=== PATIENT | male | born 1980 | race Caucasian/White ===

== ENCOUNTER 2017-08-09 16:28 | Emergency (ER) | payer BC ==
--- NOTE | 2017-08-09 18:12 | EDM.PDOC ---
ED HPI GENERAL MEDICAL PROBLEM - General Chief Complaint: Lower Extremity Injury/Pain Stated Complaint: PAIN LT LEG Time Seen by Provider: 08/09/17 18:02 Source of Information: Reports: Patient History Limitations: Reports: No Limitations - History of Present Illness INITIAL COMMENTS - FREE TEXT/NARRATIVE: HISTORY AND PHYSICAL: History of present illness: Patient is a 36-year-old male who presents to the emergency room today with complaints of left knee pain. States yesterday he fell and twisted his knee and landed on it. Since that time has had increased pain and difficulty walking on it. Has a history of 3 knee surgeries to the affected extremity. He has had a total knee replacement and a artificial ACL. Patient reports he did call Dr. Jansen and try to get in to see her at this time. Dr. Jansen is out until 08/15/2017 but spoke with her nurse on the phone, she recommended that he come to the emergency room for evaluation. Review of systems: As per history of present illness and below otherwise all systems reviewed and negative. Past medical history: As per history of present illness and as reviewed below otherwise noncontributory. Surgical history: As per history of present illness and as reviewed below otherwise noncontributory. Social history: No reported history of drug or alcohol abuse. Family history: As per history of present illness and as reviewed below otherwise noncontributory. Physical exam: HEENT: Atraumatic, normocephalic, pupils reactive, negative for conjunctival pallor or scleral icterus, mucous membranes moist, throat clear, neck supple, nontender, trachea midline. Lungs: Clear to auscultation, breath sounds equal bilaterally, chest nontender. Heart: S1S2, regular, negative for clicks, rubs, or JVD. Abdomen: Soft, nondistended, nontender. Negative for masses or hepatosplenomegaly. Negative for costovertebral tenderness. Pelvis: Stable nontender. Genitourinary: Deferred. Rectal: Deferred. Extremities/Skin: Left knee was palpated with no obvious deformities. Slight tenderness with palpation over the lateral and medial sides. No instability noted but did cause mild discomfort while performing these tests. Skin is intact , warm, dry. No edema noted. Strong pedal pulses. Positive CMS. No foot drop noted. Negative for cords or calf pain. Neurovascular unremarkable. Neuro: Awake, alert, oriented. Cranial nerves II through XII unremarkable. Cerebellum unremarkable. Motor and sensory unremarkable throughout. Exam nonfocal. I did witness the patient ambulate in and was able to lightly bear weight. I did discuss with the patient that since he has multiple knee injuries/surgeries in the past that also involved tendon and ligament involvement he would likely need close follow-up with his orthopedic surgeon, Dr. Jansen. Even if today's x- ray is negative he may need an MRI for further evaluation. Patient voices understanding and is agreeable to plan of care. Viewed the x-ray results with patient. As we discussed previously it would like him to follow-up with orthopedist. Will provide him with crutches and a knee immobilizer. Limited amount of [place] has been prescribed. He may take ibuprofen for intermittent breakthrough pain. Please be nonweightbearing. Patient voices understanding and is agreeable to plan of care. Denies any further questions at this time. Diagnostics: Knee x-ray Therapeutics: Crutches, knee immobilizer Impression: Injury Plan: 1. The x-ray does not show any fractures. Due to your extensive history of knee injuries/surgeries I do want to do follow-up with an orthopedist in the next 1- 2 days. 2. Use your crutches and the knee immobilizer to be nonweightbearing. He may ice , elevate, and rest the extremity as often as possible. 3. La Vernia 02/24/25 has been given to as a prescription for pain management. He may take 1 tab every 4-6 hours as needed. You may take ibuprofen as needed for breakthrough pain. 4. Turn to the ED as needed and as discussed Definitive disposition and diagnosis as appropriate pending reevaluation and review of above. Onset Date: 08/08/17 Location: Reports: Lower Extremity, Left - Related Data Allergies Allergy/AdvReac Type Severity Reaction Status Date / Time No Known Allergies Allergy Verified 09/09/14 21:51 Past Medical History - Past Health History Medical/Surgical History: Denies Medical/Surgical History Social & Family History - Tobacco Use Smoking Status *Q: Current Some Day Smoker Years of Tobacco use: 4 - Alcohol Use Days Per Week of Alcohol Use: 1 Number of Drinks Per Day: 4 Total Drinks Per Week: 4 - Recreational Drug Use Recreational Drug Use: No Drug Use in Last 12 Months: No Review of Systems - Review of Systems Review Of Systems: ROS reveals no pertinent complaints other than HPI. ED EXAM, GENERAL - Physical Exam Exam: See Below (See dictation) Course - Orders/Labs/Meds Orders: Active Orders 24 hr Category Date Time Status Knee 3V Lt [CR] Stat Exams 08/09/17 16:36 Taken DME for Discharge [COMM] Stat Oth 08/09/17 18:25 Ordered Departure - Departure Time of Disposition: 18:34 Disposition: Home, Self-Care 01 Clinical Impression: Knee injury Qualifiers: Encounter type: initial encounter Laterality: left Qualified Code(s): S89.92XA - Unspecified injury of left lower leg, initial encounter - Discharge Information Referrals: PCP,None [Primary Care Provider] - Forms: ED Department Discharge Additional Instructions: My general discharge The following information is given to patients seen in the emergency department who are being discharged to home. This information is to outline your options for follow-up care. We provide all patients seen in our emergency department with a follow-up referral. The need for follow-up, as well as the timing and circumstances, are variable depending upon the specifics of your emergency department visit. If you don't have a primary care physician on staff, we will provide you with a referral. We always advise you to contact your personal physician following an emergency department visit to inform them of the circumstance of the visit and for follow-up with them and/or the need for any referrals to a consulting specialist. The emergency department will also refer you to a specialist when appropriate. This referral assures that you have the opportunity for follow-up care with a specialist. All of these measure are taken in an effort to provide you with optimal care, which includes your follow-up. Under all circumstances we always encourage you to contact your private physician who remains a resource for coordinating your care. When calling for follow-up care, please make the office aware that this follow-up is from your recent emergency room visit. If for any reason you are refused follow-up, please contact the [facility] Emergency Department at and asked to speak to the emergency department charge nurse. [facility] Specialty Care - [facility] Professional [address], [address] [place] [address] 1. The x-ray does not show any fractures. Due to your extensive history of knee injuries/surgeries I do want to do follow-up with an orthopedist in the next 1- 2 days. 2. Use your crutches and the knee immobilizer to be nonweightbearing. He may ice , elevate, and rest the extremity as often as possible. 3. La Vernia 02/24/25 has been given to as a prescription for pain management. He may take 1 tab every 4-6 hours as needed. You may take ibuprofen as needed for breakthrough pain. 4. Turn to the ED as needed and as discussed - My Orders Last 24 Hours: My Active Orders 08/09/17 18:25 DME for Discharge [COMM] Stat - Assessment/Plan Last 24 Hours: My Active Orders 08/09/17 18:25 DME for Discharge [COMM] Stat
[2017-08-09 19:22] VITALS: BP 115/60
--- NOTE | 2017-08-10 10:27 | CR ---
EXAM DATE: 08/09/17 PATIENT'S AGE: 36 Patient: AMISHA SANTANA Facility: [place], [place] Site . Site : 1980 Study: XRay Knee [id number]/[id number] 5:00:47 PM Ordering Physician: Doctor Morris Final Report: Indication: Sports injury yesterday history of prior injury and surgery Technique: Three views left knee Comparison: September 09, 2014 Findings: Bones: Alignment is normal. No fractures or bone lesions. Unchanged postsurgical changes in the proximal tibia Joint spaces: Stable, mild to moderate degenerative changes in the medial and lateral compartments of the knee. Soft tissues: There may be a very small suprapatellar effusion. Impression: There may be a very small suprapatellar effusion. No acute fracture. Stable degenerative changes in the medial and lateral compartments. Dictated by Renetta Escamilla MD @ Aug 09 2017 5:25PM (Electronic Signature) Report Signed by Proxy. MIYA
== END 2017-08-09 18:52 | disposition home or self-care (01) ==
LOC: MW.ED 16:28
DX: S89.92XA Unspecified injury of left lower leg, initial encounter (principal); F17.200 Nicotine dependence, unspecified, uncomplicated; X50.1XXA Overexertion from prolonged static or awkward postures, initial encounter
CPT/HCPCS: 73562-26-LT; 73562-LT; 99283

== ENCOUNTER 2017-09-27 06:34 | Day surgery (SDC) | payer BC ==
[~2017-09-27 06:34] MED LIST: Lactated Ringers 1,000 ML IV SCH
[2017-09-27] MEDS ORDERED: Ondansetron 4 MG/2 ML SDV ONE (07:17)
[2017-09-27] MEDS ORDERED: Midazolam 1 MG/ML 2 ML SDV ONE (07:17)
[2017-09-27] MEDS ORDERED: Propofol 200 MG/20 ML SDV ONE ×2 (07:17→07:23)
[2017-09-27] MEDS ORDERED: fentaNYL 100 MCG/2 ML SDV ONE (07:17)
[2017-09-27] MEDS ORDERED: Dexamethasone 4 MG/ML 5 ML MDV ONE (07:18)
[2017-09-27] MEDS ORDERED: Ketorolac 30 MG/ML SDV ONE (07:18)
[2017-09-27] MEDS ORDERED: Lidocaine 1% 20 ML MDV ONE (07:32)
--- NOTE | 2017-09-27 07:32 | PCM.PREANE ---
Preanesthetic Assessment - Procedure Proposed Procedure: Left knee scope with menisectomy - Anesthesia/Transfusion/Family Hx Anesthesia History: Prior Anesthesia Without Reaction Other Type of Anesthesia Reaction Comment: DENIES ANY PROBLEMS WITH ANESTHESIA Transfusion History: No Prior Transfusion(s) Intubation History: Unknown - Review of Systems General: No Symptoms, Other (active - played hockey last evening) Pulmonary: No Symptoms Cardiovascular: No Symptoms Gastrointestinal: No Symptoms Neurological: Gait Disturbance (due to pain in left knee) Other: Reports: None - Physical Assessment NPO Status Date: 09/26/17 NPO Status Time: 23:00 O2 Sat by Pulse Oximetry: 96 Respiratory Rate: 16 Vital Signs: Last Vital Signs Temp 98.4 F 09/27/17 07:09 Pulse 64 09/27/17 07:09 Resp 16 09/27/17 07:09 BP 112/65 09/27/17 07:09 Pulse Ox 96 09/27/17 07:09 Height: 5 ft 8 in Weight: 210 lb ASA Class: 2 Airway Class: Mallampati = 2 Dentition: Reports: Normal Dentition Thyro-Mental Finger Breadths: 3 Mouth Opening Finger Breadths: 3 ROM/Head Extension: Full Lungs: Clear to Auscultation, Normal Respiratory Effort Cardiovascular: Regular Rate, Regular Rhythm, No Murmurs - Allergies Allergies/Adverse Reactions: Allergies Allergy/AdvReac Type Severity Reaction Status Date / Time No Known Allergies Allergy Verified 09/09/14 21:51 - Blood Blood Available: No Product(s) Available: None - Acknowledgements Anesthesia Type Planned: General Anesthesia (LMA) Pt an Appropriate Candidate for the Planned Anesthesia: Yes Alternatives and Risks of Anesthesia Discussed w Pt/Guardian: Yes Pt/Guardian Understands and Agrees with Anesthesia Plan: Yes Additional Comments: consent signed, questions answered. PreAnesthesia Questionnaire - Past Health History Medical/Surgical History: Denies Medical/Surgical History Gastrointestinal History: Reports: Other (See Below) Other Gastrointestinal History: occasional heartburn Musculoskeletal History: Reports: Arthritis Neurological History: Reports: Concussion Endocrine/Metabolic History: Reports: Obesity/BMI 30+ - Past Surgical History Head Surgeries/Procedures: Reports: None Musculoskeletal Surgical History: Reports: Arthroscopic Knee Other Musculoskeletal Surgeries/Procedures:: previous left knee scope x3 - SUBSTANCE USE Smoking Status *Q: Current Every Day Smoker Tobacco Use Within Last Twelve Months: Cigarettes Days Per Week of Alcohol Use: 1 Number of Drinks Per Day: 4 Total Drinks Per Week: 4 Recreational Drug Use History: No - HOME MEDS Home Medications: Home Meds Acetaminophen/HYDROcodone [[place] 325-5 MG] 1 tab PO ASDIRECTED PRN 09/22/17 [ History] - CURRENT (IN HOUSE) MEDS Current Meds: Current Medications Hydrocodone Bitart/Acetaminophen ([place] 325-5 Mg) 1 - 2 tab PO Q4H PRN PRN Reason: Pain Cefazolin Sodium/Dextrose 2 gm (/ Premix) 50 mls @ 100 mls/hr IV ONCALL LEROY Lactated Ringer's (Ringers, Lactated) 1,000 mls @ 100 mls/hr IV ASDIRECTED LEROY Last Admin: 09/27/17 07:00 Dose: 100 mls/hr Discontinued Medications Dexamethasone (Dexamethasone) Confirm Administered Dose 20 mg .ROUTE .STK-MED ONE Stop: 09/27/17 07:19 Fentanyl (Sublimaze) Confirm Administered Dose 100 mcg .ROUTE .STK-MED ONE Stop: 09/27/17 07:18 Ketorolac Tromethamine (Toradol) Confirm Administered Dose 30 mg .ROUTE .STK- MED ONE Stop: 09/27/17 07:19 Midazolam HCl (Versed 1 Mg/Ml) Confirm Administered Dose 2 mg .ROUTE .STK-MED ONE Stop: 09/27/17 07:18 Ondansetron HCl (Zofran) Confirm Administered Dose 4 mg .ROUTE .STK-MED ONE Stop: 09/27/17 07:18 Propofol (Diprivan 20 Ml) Confirm Administered Dose 200 mg .ROUTE .STK-MED ONE Stop: 09/27/17 07:18 Propofol (Diprivan 20 Ml) Confirm Administered Dose 200 mg .ROUTE .STK-MED ONE Stop: 09/27/17 07:24
[2017-09-27] MEDS ORDERED: Acetaminophen/HYDROcodone 325-5 MG Tab PO PRN (08:00)
[2017-09-27] MEDS ORDERED: ceFAZolin 2 GM in Premix Bag 1 BAG IV SCH (08:00)
[2017-09-27] MEDS ORDERED: Sodium Chloride 0.9% 20 ML ONE (08:16)
[2017-09-27] MEDS ORDERED: ceFAZolin 1 GM Vial ONE (08:16)
--- NOTE | 2017-09-27 08:58 | PCM.OPNOTE ---
- General Post-Op/Procedure Note Date of Surgery/Procedure: 09/27/17 Operative Procedure(s): L knee arthroscopy with PMM/PLM Post-Op Diagnosis: DJD left knee, ACL tear, med/lat meniscus tear Anesthesia Technique: General LMA Primary Surgeon: Guerita Jansen Press Department Manager: Staci Carrera in mLs: 5 Condition: Good Free Text/Narrative:: tt=16 min #[id number]
--- NOTE | 2017-09-27 10:54 | OR ---
SURGEON: Guerita Jansen MD DATE OF PROCEDURE: 09/27/2017 PREOPERATIVE DIAGNOSES: 1. Degenerative joint disease, left knee. 2. Left knee anterior cruciate ligament tear. 3. Left knee medial and lateral meniscus tear. POSTOPERATIVE DIAGNOSES: 1. Degenerative joint disease, left knee. 2. Left knee anterior cruciate ligament tear. 3. Left knee medial and lateral meniscus tear. PROCEDURE: Left knee arthroscopy with partial medial and lateral meniscectomy. BLOCK MACHINE OPERATOR: Staci Carrera PA-C. ANESTHESIA: General. ESTIMATED BLOOD LOSS: 5 mL. TOURNIQUET TIME: 16 minutes. COMPLICATIONS: None. DVT PROPHYLAXIS: None indicated. IMPLANTS USED: None. BRIEF HISTORY: Jaret is a 37-year-old male, who has had complaint of progressive left knee pain. He has previously undergone a left knee ACL reconstruction in 2006. We did try conservative treatment. Due to his lack of response to conservative treatment, I did recommend surgical intervention. The risks and goals of procedure were discussed with the patient and were documented preoperatively. He agreed to proceed. DESCRIPTION OF PROCEDURE: The patient was properly identified and brought to the operating room. He was transferred from the OR cart and placed on the operating room table in supine position. General anesthesia was administered. After adequate anesthesia was obtained, a well-padded tourniquet was applied to the left lower extremity. The left lower extremity was then prepped in standard fashion using ChloraPrep solution. It was then sterilely draped. A time-out was performed to ensure correct site and procedure. Preoperative antibiotics were given. The surgical site had been marked preoperatively. An Esmarch was used to exsanguinate the left lower extremity and the tourniquet was inflated to 250 mmHg. A lateral portal arthrotomy was established. Blunt trocar and cannula were introduced into the suprapatellar pouch. Camera, inflow, and outflow were assembled. No synovitis was noted. The patellofemoral joint was then visualized. 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 The central portion of the trochlea showed grade 4 chondromalacia. The patella tracked centrally. I then extended down the lateral and medial gutter. No loose bodies were identified. I then entered the medial compartment. The medial portal arthrotomy was established. A blunt probe was inserted. The meniscus was probed. He had evidence of prior partial meniscectomy as there was only a thin rim of meniscus left along the posterior aspect. Small radial degenerative tearing was noted and this was resected using a shaver. The joint surfaces showed diffuse grade 3 chondromalacia. I then entered the notch. The PCL was visualized. Only a small remnant of the ACL remained which was scarred to the PCL. I then entered the lateral compartment. Again, grade 3 to grade 4 chondromalacia was noted along the lateral tibial plateau. There was an area along the medial aspect of the lateral tibial plateau that was completely devoid of the chondral cartilage. The lateral femoral condyle showed grade 2 chondromalacia. The meniscus was probed. He was found to have degenerative fraying which was resected with a combination of biters and shaver. No instability of the meniscus was noted. I then re-entered the patellofemoral joint. A chondroplasty of the patella was performed to remove the loose fragments of cartilage. A chondroplasty of the trochlear groove was also performed. Instruments were then removed from the knee. The portal sites were closed with 3-0 nylon. Lidocaine 1% was injected along the portal tracts. Xeroform gauze was placed over the wound and a bulky dressing was applied. The tourniquet was then deflated. He was awakened from his anesthetic and transferred back to the operating room cart. He was brought to recovery room in stable condition. All needle and sponge counts were correct. GAGANDEEP / KEYA /[id number] MIYA
[2017-09-27 11:16] VITALS: BP 109/58
--- NOTE | 2017-09-27 12:05 | PCM.POSTAN ---
POST ANESTHESIA ASSESSMENT - MENTAL STATUS Mental Status: Alert, Oriented - RESPIRATORY Respiratory Status: Respiratory Rate WNL, Airway Patent, O2 Saturation Stable - CARDIOVASCULAR CV Status: Pulse Rate WNL, Blood Pressure Stable - GASTROINTESTINAL GI Status: No Symptoms - POST OP HYDRATION Hydration Status: Adequate & Stable
--- NOTE | 2017-09-27 12:06 | PCM48HPAN ---
Post Anesthesia Note - EVALUATION WITHIN 48HRS OF ANESTHETIC Vital Signs in Normal Range: Yes Patient Participated in Evaluation: Yes Respiratory Function Stable: Yes Airway Patent: Yes Cardiovascular Function Stable: Yes Hydration Status Stable: Yes Pain Control Satisfactory: Yes Nausea and Vomiting Control Satisfactory: Yes Mental Status Recovered: Yes - COMMENTS/OBSERVATIONS Free Text/Narrative:: doing well without complaint at discharge
== END 2017-09-27 11:16 | disposition home or self-care (01) ==
LOC: MW.SDS 06:34
PROVIDERS: ATTEND Orthopaedic Surgery
DX: S83.242A Other tear of medial meniscus, current injury, left knee, initial encounter (principal); S83.282A Other tear of lateral meniscus, current injury, left knee, initial encounter; S83.512A Sprain of anterior cruciate ligament of left knee, initial encounter; M17.12 Unilateral primary osteoarthritis, left knee; M22.42 Chondromalacia patellae, left knee; F17.210 Nicotine dependence, cigarettes, uncomplicated; E66.9 Obesity, unspecified; Z68.31 Body mass index [BMI] 31.0-31.9, adult; Z98.890 Other specified postprocedural states
CPT/HCPCS: 29880; A9270; J0690; J1100; J1885; J2250; J2405; J3010; J7120; 01400; 88304; J2704

== ENCOUNTER 2017-12-19 12:02 | Emergency (ER) | payer BC ==
--- NOTE | 2017-12-19 13:22 | EDM.PDOC ---
ED HPI GENERAL MEDICAL PROBLEM - General Chief Complaint: ENT Problem Stated Complaint: SINUS INFECTION Time Seen by Provider: 12/19/17 13:14 - History of Present Illness INITIAL COMMENTS - FREE TEXT/NARRATIVE: HISTORY AND PHYSICAL: History of present illness: Patient 37-year-old male presents with concern of congestion sinus pain nasal discharge 1 no fever chills he is a smoker he denies influenza immunization denies chest pain shortness of breath cough or abdominal pain Review of systems: As per history of present illness and below otherwise all systems reviewed and negative. Past medical history: As per history of present illness and as reviewed below otherwise noncontributory. Surgical history: As per history of present illness and as reviewed below otherwise noncontributory. Social history: No reported history of drug or alcohol abuse. Family history: As per history of present illness and as reviewed below otherwise noncontributory. Physical exam: HEENT: Atraumatic, normocephalic, pupils reactive, negative for conjunctival pallor or scleral icterus, mucous membranes moist, throat clear, neck supple, nontender, trachea midline. Tenderness over his maxillary and frontal sinuses to percussion Lungs: Clear to auscultation, breath sounds equal bilaterally, chest nontender. Heart: S1S2, regular, negative for clicks, rubs, or JVD. Abdomen: Soft, nondistended, nontender. Negative for masses or hepatosplenomegaly. Negative for costovertebral tenderness. Pelvis: Stable nontender. Genitourinary: Deferred. Rectal: Deferred. Extremities: Atraumatic, negative for cords or calf pain. Neurovascular unremarkable. Neuro: Awake, alert, oriented. Cranial nerves II through XII unremarkable. Cerebellum unremarkable. Motor and sensory unremarkable throughout. Exam nonfocal. Diagnostics: Deferred Therapeutics: None Impression: #1 sinusitis Definitive disposition and diagnosis as appropriate pending reevaluation and review of above. - Related Data Allergies Allergy/AdvReac Type Severity Reaction Status Date / Time No Known Allergies Allergy Verified 09/09/14 21:51 Home Meds: Home Meds Acetaminophen/HYDROcodone [[place] 325-5 MG] 1 - 2 tab PO Q4H PRN #80 tablet 09/27 [Rx] Past Medical History - Past Health History Medical/Surgical History: Denies Medical/Surgical History Gastrointestinal History: Reports: Other (See Below) Other Gastrointestinal History: occasional heartburn Musculoskeletal History: Reports: Arthritis Neurological History: Reports: Concussion Endocrine/Metabolic History: Reports: Obesity/BMI 30+ - Past Surgical History Head Surgeries/Procedures: Reports: None Musculoskeletal Surgical History: Reports: Arthroscopic Knee Other Musculoskeletal Surgeries/Procedures:: previous left knee scope x3 Social & Family History - Family History Family Medical History: Noncontributory - Tobacco Use Smoking Status *Q: Current Every Day Smoker Years of Tobacco use: 10 Packs/Tins Daily: 0.5 - Caffeine Use Caffeine Use: Reports: Other Other Caffeine Use: unknown - Alcohol Use Days Per Week of Alcohol Use: 1 Number of Drinks Per Day: 4 Total Drinks Per Week: 4 - Recreational Drug Use Recreational Drug Use: No Drug Use in Last 12 Months: No Other Recreational Drug Type: unknown ED ROS GENERAL - Review of Systems Review Of Systems: ROS reveals no pertinent complaints other than HPI. ED EXAM, GENERAL - Physical Exam Exam: See Below (See dictation) Departure - Departure Time of Disposition: 13:21 Disposition: Home, Self-Care 01 Condition: Good Clinical Impression: Sinusitis - Discharge Information Referrals: PCP,None [Primary Care Provider] - Additional Instructions: The following information is given to patients seen in the emergency department who are being discharged to home. This information is to outline your options for follow-up care. We provide all patients seen in our emergency department with a follow-up referral. The need for follow-up, as well as the timing and circumstances, are variable depending upon the specifics of your emergency department visit. If you don't have a primary care physician on staff, we will provide you with a referral. We always advise you to contact your personal physician following an emergency department visit to inform them of the circumstance of the visit and for follow-up with them and/or the need for any referrals to a consulting specialist. The emergency department will also refer you to a specialist when appropriate. This referral assures that you have the opportunity for followup care with a specialist. All of these measure are taken in an effort to provide you with optimal care, which includes your followup. Under all circumstances we always encourage you to contact your private physician who remains a resource for coordinating your care. When calling for followup care, please make the office aware that this follow-up is from your recent emergency room visit. If for any reason you are refused follow-up, please contact the [facility] emergency department at and asked to speak to the emergency department charge nurse. Augmentin as prescribed decongestants as prescribed follow-up private medical doctor as needed as discussed and return as needed as discussed
[2017-12-19 13:25] VITALS: BP 119/79
== END 2017-12-19 13:47 | disposition home or self-care (01) ==
LOC: MW.ED 12:02
DX: J32.9 Chronic sinusitis, unspecified (principal); F17.210 Nicotine dependence, cigarettes, uncomplicated
CPT/HCPCS: 99283

== ENCOUNTER 2018-03-19 16:29 | Emergency (ER) | payer BC ==
[2018-03-19] MEDS ORDERED: Sodium Chloride 0.9% 10 ML Syringe FLUSH PRN (16:41)
[2018-03-19] MEDS ORDERED: Sodium Chloride 0.9% 2.5 ML Syringe FLUSH PRN (16:41)
[2018-03-19] MEDS ORDERED: Ondansetron 4 MG/2 ML SDV IVPUSH ONE (16:54)
[2018-03-19] MEDS ORDERED: Sodium Chloride 0.9% 1,000 ML IV ONE (16:54)
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
[2018-03-19] MEDS ORDERED: Morphine 2 MG/ML Syringe IVPUSH ONE (17:34)
[2018-03-19 18:12] VITALS: BP 115/74
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
== END 2018-03-19 18:50 ==
LOC: MW.ED 16:29
DX: S06.4X9A Epidural hemorrhage with loss of consciousness of unspecified duration, initial encounter (principal); F10.129 Alcohol abuse with intoxication, unspecified; Y04.8XXA Assault by other bodily force, initial encounter; E66.9 Obesity, unspecified; Z68.31 Body mass index [BMI] 31.0-31.9, adult; Y90.8 Blood alcohol level of 240 mg/100 ml or more
CPT/HCPCS: 36415; 70450; 70486; 71045; 72125; 80053; 85025; 85610; 96361; 96374; 96375; 99285; G0480; J2270; J2405; J7040

== ENCOUNTER 2020-07-04 18:17 | Emergency (ER) | payer BC ==
[2020-07-04] MEDS ORDERED: Ondansetron 4 MG Tab.DIS PO ONE (20:40)
[2020-07-04] MEDS ORDERED: Ketorolac 60 MG/2 ML SDV IM ONE (20:40)
[2020-07-04] MEDS ORDERED: HYDROmorphone 1 MG/ML Syringe IM ONE (20:40)
[2020-07-04] MEDS ORDERED: Ondansetron 4 MG Tab.DIS ONE (21:07)
--- NOTE | 2020-07-04 21:26 | CR ---
Chest and right ribs: Frontal view of the chest was obtained as well as 2 views of the right ribs. Comparison: Prior chest x-ray of 03/19/18. Heart size and mediastinum are normal. Lungs are clear. Deformity from old healed right clavicle fracture is noted. No discrete rib abnormality is appreciated. Impression: 1. Nothing acute is seen on frontal chest x-ray. 2. No discrete right-sided rib abnormality is appreciated. Diagnostic code #2 This report was dictated in MDT
--- NOTE | 2020-07-04 22:26 | EDM.PDOC ---
ED HPI GENERAL MEDICAL PROBLEM - General Chief Complaint: Back Pain or Injury Stated Complaint: FALL, MIDDLE BACK PAIN Time Seen by Provider: 07/04/20 20:21 - History of Present Illness INITIAL COMMENTS - FREE TEXT/NARRATIVE: HISTORY AND PHYSICAL: History of present illness: This is a 39-year-old gentleman who presents ER today complaining of right lateral rib pain after falling off his daughter's hover board earlier today. Patient reports no head trauma or loss of consciousness. Patient reports while he was riding the of a board he had a bump and he fell backwards hitting his right side of his ribs. Patient reports he is experiencing shortness of breath and severe pain in that region. Patient denies any hemoptysis. Patient has any fevers, shakes, chills, nausea, vomiting, diarrhea, dysuria, frequency, urgency, hematuria. Patient has any history of hypertension, diabetes, liver, lung, kidney problems. Patient has no known drug allergies. Review of systems: As per history of present illness and below otherwise all systems reviewed and negative. Past medical history: As per history of present illness and as reviewed below otherwise noncontributory. Surgical history: As per history of present illness and as reviewed below otherwise noncontributory. Social history: No reported history of drug or alcohol abuse. Family history: As per history of present illness and as reviewed below otherwise no ncontributory. Physical exam: Constitutional: Patient is oriented to person, place, and time. Appears well- developed and well-nourished. No distress. HEENT: Moist mucous membranes Head: Normocephalic and atraumatic Eyes: Right eye exhibits no discharge. Left eye exhibits no discharge. No scleral icterus Neck: Normal range of motion. No tracheal deviation present. Cardiovascular: Normal rate and regular rhythm. Pulmonary: Effort normal, no respiratory distress. Abdominal: No distention Musculoskeletal: Normal range of motion Neurologic: Alert and oriented to person, place and time. Skin: [place], warm and dry. Psychiatric: Normal mood and affect. Behavior is normal. Judgment and thought content normal. Nursing note and vital signs have been reviewed Patient's ER physical exam is significant for tenderness to palpation to his right lateral ribs. No crepitance. Lungs are clear without any wheezing rales or rhonchi. No deformity palpable. Patient has no point C-spine T-spine or L- spine tenderness. Patient has no C-spine T-spine or L-spine tenderness to palpation. Patient has no left upper or right upper quadrant tenderness to palpation. Patient has no crepitus to palpation to the anterior chest wall. Patient is neurologically intact. Patient does not present with any signs or or symptoms that would be consistent with acute intracranial, intra-abdominal, intrathoracic, or long bone injury. All long bones have been palpated and range of motion been performed and there is no evidence of any acute pathology. Diagnostics: Right ribs with chest x-ray reveals no evidence of acute fracture. Therapeutics: Toradol/Dilaudid/Zofran IM given to the patient Assessment and plan: 39-year-old gentleman who presents to the ER today complaining of right-sided rib pain after fall. Patient's x-rays revealed no evidence of fracture or pneumothorax. Patient has been given adequate analgesia in the ED and feels much improved. Patient be discharged home with ibuprofen and Ultram to assist with pain. Patient has been encouraged to take deep inspirations over the next few days. Patient was encouraged to return to the ED if he has any worsening shortness of breath or any new symptoms. Reassessment at the time of disposition demonstrates that the patient is in no acute distress. The patient has remained stable throughout the entire ED visit and is without objective evidence for acute process requiring urgent intervention or hospitalization. The patient is stable for discharge, counseling is provided as documented above, discussed symptomatic treatment and specific conditions for return. I have spoken with the patient/caregive and discussed todays findings, in addition to providing specific details for the plan of care. Questions are answered and there is agreement with the plan. Definitive disposition and diagnosis as appropriate pending reevaluation and review of above. tailbone, low back Pain Score (Numeric/FACES): 8 - Related Data Allergies Allergy/AdvReac Type Severity Reaction Status Date / Time No Known Allergies Allergy Verified 07/04/20 19:05 Home Meds: Home Meds Ibuprofen 600 mg PO Q6HR PRN #30 tablet 07/04/20 [Rx] traMADol [Ultram] 50 mg PO Q6H PRN #12 tab 07/04/20 [Rx] Past Medical History - Past Health History Medical/Surgical History: Denies Medical/Surgical History Gastrointestinal History: Reports: Other (See Below) Other Gastrointestinal History: occasional heartburn Musculoskeletal History: Reports: Arthritis Neurological History: Reports: Concussion Endocrine/Metabolic History: Reports: Obesity/BMI 30+ - Infectious Disease History Infectious Disease History: Reports: Chicken Pox - Past Surgical History Head Surgeries/Procedures: Reports: None Musculoskeletal Surgical History: Reports: Arthroscopic Knee Other Musculoskeletal Surgeries/Procedures:: previous left knee scope x3 Social & Family History - Family History Family Medical History: Noncontributory - Tobacco Use Smoking Status *Q: Current Every Day Smoker Years of Tobacco use: 15 Packs/Tins Daily: 0.5 - Caffeine Use Caffeine Use: Reports: None Other Caffeine Use: unknown - Recreational Drug Use Recreational Drug Use: No ED ROS GENERAL - Review of Systems Review Of Systems: See Below ED EXAM, GENERAL - Physical Exam Exam: See Below Course - Vital Signs Last Recorded V/S: Last Vital Signs Temp 97.5 F 07/04/20 19:01 Pulse 104 H 07/04/20 19:01 Resp 16 07/04/20 19:01 BP 126/76 07/04/20 19:01 Pulse Ox 96 07/04/20 19:01 - Orders/Labs/Meds Meds: Medications Discontinued Medications Generic Name Dose Route Start Last Admin Trade Name Freq PRN Reason Stop Dose Admin Hydromorphone HCl 1 mg 07/04/20 20:40 07/04/20 21:09 Dilaudid IM 07/04/20 20:41 1 mg ONETIME ONE Administration Ketorolac Tromethamine 60 mg 07/04/20 20:40 07/04/20 21:07 Toradol IM 07/04/20 20:41 60 mg ONETIME ONE Administration Ondansetron HCl 4 mg 07/04/20 20:40 07/04/20 21:04 Zofran Odt PO 07/04/20 20:41 4 mg ONETIME ONE Administration Ondansetron HCl Confirm 07/04/20 21:07 07/04/20 21:11 Zofran Odt Administered 07/04/20 21:08 Not Given Dose 4 mg .ROUTE .STK-MED ONE Departure - Departure Time of Disposition: 22:21 Disposition: Home, Self-Care 01 Condition: Good Clinical Impression: Traumatic injury of rib - Discharge Information Instructions: Blunt Chest Trauma Referrals: PCP,None [Primary Care Provider] - Additional Instructions: The following information is given to patients seen in the emergency department who are being discharged to home. This information is to outline your options for follow-up care. We provide all patients seen in our emergency department with a follow-up referral. The need for follow-up, as well as the timing and circumstances, are variable depending upon the specifics of your emergency department visit. If you don't have a primary care physician on staff, we will provide you with a referral. We always advise you to contact your personal physician following an emergency department visit to inform them of the circumstance of the visit and for follow-up with them and/or the need for any referrals to a consulting specialist. The emergency department will also refer you to a specialist when appropriate. This referral assures that you have the opportunity for follow-up care with a sp ecialist. All of these measure are taken in an effort to provide you with optimal care, which includes your follow-up. Under all circumstances we always encourage you to contact your private physicia n who remains a resource for coordinating your care. When calling for follow-up care, please make the office aware that this follow-up is from your recent emergency room visit. If for any reason you are refused follow-up, please contact the [facility] Emergency Department at and asked to speak to the emergency department charge nurse. Sepsis Event Note (ED) - Evaluation Sepsis Screening Result: No Definite Risk - Focused Exam Vital Signs: Vital Signs Temp Pulse Resp BP Pulse Ox 07/04/20 19:01 97.5 F 104 H 16 126/76 96
[2020-07-04 22:40] VITALS: BP 122/78; PULSE 78
== END 2020-07-04 22:40 | disposition home or self-care (01) ==
LOC: MW.ED 18:17
DX: S29.9XXA Unspecified injury of thorax, initial encounter (principal); E66.9 Obesity, unspecified; F17.210 Nicotine dependence, cigarettes, uncomplicated; Z68.32 Body mass index [BMI] 32.0-32.9, adult; V00.131A Fall from skateboard, initial encounter
CPT/HCPCS: 71101; 96372; 99283; A9270; J1170; J1885

== ENCOUNTER 2021-11-01 20:40 | Emergency (ER) | payer BC ==
[2021-11-01] MEDS ORDERED: valACYclovir 500 MG Tab PO STA ×2 (21:03→21:04)
[2021-11-01] MEDS ORDERED: Acetaminophen/HYDROcodone 325-5 MG Tab PO ONE (21:04)
[2021-11-01] MEDS ORDERED: Lidocaine 5% Oint 35.44 GM Tube TOP ONE (21:04)
--- NOTE | 2021-11-01 21:21 | EDM.PDOC ---
ED HPI GENERAL MEDICAL PROBLEM - General Chief Complaint: Back Pain or Injury Stated Complaint: BACK PAIN Time Seen by Provider: 11/01/21 20:45 - History of Present Illness INITIAL COMMENTS - FREE TEXT/NARRATIVE: CHIEF COMPLAINT(S): Back pain HISTORY OF PRESENT ILLNESS: This is a 41-year-old man without any significant past medical who comes to the emergency department with a chief complaint of back pain. The patient states that he thinks he has shingles. He states that he is currently experiencing very sharp burning pain on the left side of his middle back. He states that he does not know if there is any rash in this area. He states that he has never had shingles before. He denies any injury to his back. He denies any fever, chills, IV drug use. He denies any recent antibiotic use. He states that he has not tried anything therefore there is no relieving factors. Any time of touching seems to exacerbate the pain. Denies any radiation of this pain. He denies any bowel incontinence, urinary incontinence or saddle anesthesia. Denies any cough, runny nose or congestion. REVIEW OF SYSTEMS: Constitutional: Denies fever, chills. Eyes: Denies eye pain Ears, Nose, Mouth, & Throat: Denies earache Cardiovascular: Denies chest pain Respiratory: Denies shortness of breath Gastrointestinal: Denies Nausea, vomiting, diarrhea, hematochezia. Genitourinary: Denies hematuria Skin:Denies a rash MSK: Positive for left-sided burning back pain Neurological: Denies blurred vision, numbness, tingling, weakness Psychiatric: Denies depression PAST MEDICAL HISTORY: As per history of present illness and as reviewed below otherwise noncontributory. SURGICAL HISTORY: As per history of present illness and as reviewed below otherwise noncontributory. SOCIAL HISTORY: As per history of present illness and as reviewed below otherwise noncontributory. FAMILY HISTORY: As per history of present illness and as reviewed below otherwise noncontributory. EXAMINATION OF ORGAN SYSTEMS/BODY AREAS: Constitutional: Blood pressure is 136/86, heart rate 101, respiratory rate 17 with an oxygen saturation 96% on room air. Temperature 36.4 General: Well-appearing man who is in no acute distress Psychiatric: Appropriate mood and affect. Eyes: No scleral icterus or conjunctival erythema ENMT: Moist mucous membranes. No pharyngeal erythema Cardiovascular: Regular, rate, and rhythm. No gallops, murmurs, or rubs. Bilateral upper extremity pulses symmetric and intact. Respiratory: Lungs clear to auscultation bilaterally. No wheezes, rales, or rhonchi. Gastrointestinal: Soft, non-tender, non-distended. Normoactive bowel sounds Genitourinary: No suprapubic tenderness Musculoskeletal: Normal range of motion. No midline cervical, thoracic, or lumbar tenderness. Skin: No lesions or abrasions. There is severe hypersensitivity to pain along the left mid back starting paraspinally around T10 area which radiates laterally. No overlying skin changes. Neurological: Alert, GCS 15 MEDICAL DECISION MAKING AND COURSE IN THE ED WITH INTERPRETATION/REVIEW OF DIAGNOSTIC STUDIES: This is a 41-year-old man without any significant past medical history who comes to the emergency department with dermatomal skin sensitivity tenderness who is afebrile and appears well. I do believe these are the early stages of shingles. I did discuss the use of valacyclovir, Tylenol, Motrin and occasional use of [place] in addition to lidocaine cream for pain relief. I discussed that he should monitor for signs of worsening infection. He is to return for any new or worsening symptoms. He was amenable discharge and had no further questions DISPOSITION: The patient was discharged home in stable condition. The patient will follow up with primary care physician in 3 to 5 days CONDITION: Good PROCEDURES: None FINAL IMPRESSION(S)/DIAGNOSES: 1. Acute right back pain, likely shingles Donald Hargrove M.D. Back Pain Score (Numeric/FACES): 4 - Related Data Allergies Allergy/AdvReac Type Severity Reaction Status Date / Time No Known Allergies Allergy Verified 11/01/21 21:00 Home Meds: Home Meds Hydrocodone/Acetaminophen [HYDROcodone-Acetaminophen 5-325 MG] 1 each PO Q6H #10 tab 11/01/21 [Rx] Lidocaine 30 gm TP Q6H #30 cream..g. 11/01/21 [Rx] valACYclovir [Valtrex] 1,000 mg PO TID #21 tablet 11/01/21 [Rx] Past Medical History - Past Health History Medical/Surgical History: Denies Medical/Surgical History Gastrointestinal History: Reports: Other (See Below) Other Gastrointestinal History: occasional heartburn Musculoskeletal History: Reports: Arthritis Neurological History: Reports: Concussion Endocrine/Metabolic History: Reports: Obesity/BMI 30+ - Infectious Disease History Infectious Disease History: Reports: Chicken Pox - Past Surgical History Head Surgeries/Procedures: Reports: None Musculoskeletal Surgical History: Reports: Arthroscopic Knee Other Musculoskeletal Surgeries/Procedures:: previous left knee scope x3 Social & Family History - Family History Family Medical History: No Pertinent Family History - Caffeine Use Caffeine Use: Reports: None Other Caffeine Use: unknown - Recreational Drug Use Recreational Drug Use: No ED ROS GENERAL - Review of Systems Review Of Systems: See Below ED EXAM, GENERAL - Physical Exam Exam: See Below Course - Vital Signs Last Recorded V/S: Last Vital Signs Temp 36.4 C 11/01/21 21:36 Pulse 98 11/01/21 21:36 Resp 17 11/01/21 21:36 BP 118/76 11/01/21 21:36 Pulse Ox 96 11/01/21 21:36 - Orders/Labs/Meds Meds: Medications Discontinued Medications Generic Name Dose Route Start Last Admin Trade Name Freq PRN Reason Stop Dose Admin Hydrocodone Bitart/Acetaminophen 1 tab 11/01/21 21:04 11/01/21 21:35 Acetaminophen/Hydrocodone 325-5 Mg Tab PO 11/01/21 21:05 1 tab ONETIME ONE Administration Lidocaine HCl 1 gm 11/01/21 21:04 11/01/21 21:35 Lidocaine 5% Oint 35.44 Gm Tube TOP 11/01/21 21:05 1 gm ONETIME ONE Administration Valacyclovir HCl 1,000 mg 11/01/21 21:03 11/01/21 21:27 Valacyclovir 500 Mg Tab PO 11/01/21 21:04 1,000 mg ONETIME STA Administration Valacyclovir HCl 1,000 mg 11/01/21 21:04 11/01/21 21:26 Valacyclovir 500 Mg Tab PO 11/01/21 21:05 1,000 mg ONETIME STA Administration Departure - Departure Time of Disposition: 21:17 Disposition: Home, Self-Care 01 Condition: Fair Clinical Impression: Shingles - Discharge Information *PRESCRIPTION DRUG MONITORING PROGRAM REVIEWED*: No *COPY OF PRESCRIPTION DRUG MONITORING REPORT IN PATIENT KIM: No Prescriptions: Hydrocodone/Acetaminophen [HYDROcodone-Acetaminophen 5-325 MG] 1 each PO Q6H #10 tab Lidocaine 30 gm TP Q6H #30 cream..g. valACYclovir [Valtrex] 1,000 mg PO TID #21 tablet Instructions: Shingles Forms: ED Department Discharge Additional Instructions: You were evaluated today on an emergent basis. At this time I do believe the symptoms you are experiencing are likely secondary to early shingles. I recommend to use valacyclovir 1000 mg 3 times a day for the next 7 days. As discussed you may end up with an eruption of what appears to be like pimples. Is important that you keep this area clean with soap and water. This is very contagious so I recommend that if you do have these areas that no one else merced ches anywhere a sure to protect others. In addition for the pain I would like you to use the following regimen below. Please follow-up with your primary care physician in 1 to 2 weeks for reevaluation. Please use: Tylenol 500-1000mg every 6 hours (DO NOT TAKE MORE THAN 4000mg in 1 day) *PLEASE REMEMBER NORCO CONTAINS TYLENOL. Ibuprofen 400mg every 6 hours (Take with food as it can cause ulcers, GI upset) Example schedule: 8:00 AM (Tylenol 500mg) 11:00 AM (Ibuprofen 400mg) 2:00 PM (Tylenol 500mg) *NORCO for severe pain (1 TAB) 5:00 PM (Ibuprofen 400mg) In addition to Tylenol and Motrin you may use Lidocaine Cream (Lidoderm) as needed 4 times a day for symptomatic relief. [facility] [address] [place] [address] [place] [address] The patient is informed of any results of their evaluation and diagnostic workup and all questions are answered. They are given discharge instructions and return precautions. The patient is stable for discharge. The patient states they understand and agree with the plan and that they will return if their symptoms get worse or if they have any new concerns. The following information is given to patients seen in the emergency department who are being discharged to home. This information is to outline your options for follow-up care. We provide all patients seen in our emergency department with a follow-up referral. The need for follow-up, as well as the timing and circumstances, are variable depending upon the specifics of your emergency department visit. If you don't have a primary care physician on staff, we will provide you with a referral. We always advise you to contact your personal physician following an emergency department visit to inform them of the circumstance of the visit and for follow-up with them and/or the need for any referrals to a consulting specialist. The emergency department will also refer you to a specialist when appropriate. This referral assures that you have the opportunity for follow-up care with a specialist. All of these measure are taken in an effort to provide you with optimal care, which includes your follow-up. Under all circumstances we always encourage you to contact your private physician who remains a resource for coordinating your care. When calling for follow-up care, please make the office aware that this follow-up is from your recent emergency room visit. If for any reason you are refused follow-up, please contact the [facility] Emergency Department at and asked to speak to the emergency department charge nurse. Sepsis Event Note (ED) - Evaluation Sepsis Screening Result: No Definite Risk
[2021-11-01 21:36] VITALS: BP 118/76; PULSE 98
== END 2021-11-01 21:44 | disposition home or self-care (01) ==
LOC: MW.ED 20:40
DX: B02.9 Zoster without complications (principal); M19.90 Unspecified osteoarthritis, unspecified site; E66.9 Obesity, unspecified; Z68.32 Body mass index [BMI] 32.0-32.9, adult
CPT/HCPCS: 99283; A9270

== ENCOUNTER 2022-01-05 21:29 | Emergency (ER) | payer BC ==
[2022-01-05] MEDS ORDERED: Acetaminophen/oxyCODONE 325-10 MG Tab PO ONE (22:42)
[2022-01-05 23:07] VITALS: BP 131/82; PULSE 86
== END 2022-01-05 23:08 | disposition home or self-care (01) ==
LOC: MW.ED 21:29
DX: S83.92XA Sprain of unspecified site of left knee, initial encounter (principal); E66.9 Obesity, unspecified; Z68.31 Body mass index [BMI] 31.0-31.9, adult; X50.1XXA Overexertion from prolonged static or awkward postures, initial encounter; Y93.22 Activity, ice hockey
CPT/HCPCS: 73562; 99283; A9270

== ENCOUNTER 2022-05-12 23:28 | Emergency (ER) | payer BC ==
[2022-05-12] MEDS: Acetaminophen/HYDROcodone 325-5 MG Tab PO ONE (23:57)
[2022-05-13 01:18] LABS: BLOOD UREA NITROGEN,BUN 18 mg/dL (7.0-18.0); CARBON DIOXIDE,CO2 23.6 mmol/L (21.0-32.0); CHLORIDE,CL 104 mmol/L (98-107); GLUCOSE RANDOM 106 mg/dL (74-106); POTASSIUM,K 3.7 mmol/L (3.5-5.1); SODIUM,NA 139 mmol/L (136-148)
[2022-05-13 01:22] LABS: ESTIMATED GFR 98 mL/min (>60)
[2022-05-13] MEDS: Enoxaparin 100 MG/1 ML Syringe SUBCUT STA (01:24)
[2022-05-13] MEDS: Acetaminophen/HYDROcodone 325-5 MG Tab PO ONE (01:34)
[2022-05-13 02:00] VITALS: BP 131/82; PULSE 84
== END 2022-05-13 01:50 | disposition home or self-care (01) ==
LOC: MW.ED 23:28
DX: M25.562 Pain in left knee (principal); F17.210 Nicotine dependence, cigarettes, uncomplicated; E66.9 Obesity, unspecified; Z68.31 Body mass index [BMI] 31.0-31.9, adult
CPT/HCPCS: 36415; 73562; 80053; 85025; 86140; 96372; 99283; A9270; J1650

== ENCOUNTER 2022-10-31 18:48 | Emergency (ER) | payer BC ==
[2022-10-31 20:18] VITALS: BP 132/90; PULSE 92
== END 2022-10-31 20:18 | disposition home or self-care (01) ==
LOC: MW.ED 18:48
DX: M25.562 Pain in left knee (principal); Z76.0 Encounter for issue of repeat prescription; E66.9 Obesity, unspecified; Z68.32 Body mass index [BMI] 32.0-32.9, adult; Z72.0 Tobacco use; Z96.652 Presence of left artificial knee joint
CPT/HCPCS: 99281; 99283

== ENCOUNTER 2023-01-10 12:16 | Emergency (ER) | payer BC ==
[2023-01-10] MEDS ORDERED: Ketorolac 30 MG/ML SDV IVPUSH ONE (12:42)
[2023-01-10] MEDS ORDERED: Ondansetron 4 MG/2 ML SDV IVPUSH ONE (12:42)
[2023-01-10] MEDS ORDERED: Morphine 4 MG/ML Syringe IVPUSH ONE (12:42)
[2023-01-10 12:54] LABS: CARBON DIOXIDE,CO2 27.7 mmol/L (21.0-32.0); POTASSIUM,K 3.9 mmol/L (3.5-5.1)
[2023-01-10] MEDS ORDERED: Iopamidol 755 MG/ML 500 ML Multipack Bottle IVPUSH ONE (13:11)
[2023-01-10 14:01] LABS: CORONAVIRUS COVID-19 NAA NEGATIVE (NEGATIVE); INFLUENZA A NAA NEGATIVE (NEGATIVE); INFLUENZA B NAA NEGATIVE (NEGATIVE); RESPIRATORY SYNCYTIAL VIR NAA NEGATIVE (NEGATIVE)
[2023-01-10 15:14] VITALS: BP 100/68; PULSE 71
== END 2023-01-10 15:14 | disposition home or self-care (01) ==
LOC: MW.ED 12:16
DX: R10.31 Right lower quadrant pain (principal); M19.90 Unspecified osteoarthritis, unspecified site; E66.9 Obesity, unspecified; Z68.32 Body mass index [BMI] 32.0-32.9, adult; Z20.822 Contact with and (suspected) exposure to COVID-19
CPT/HCPCS: 0241U; 36415; 74177; 80053; 81003; 83605; 83690; 83735; 85025; 96374; 96375; 99284; J1885; J2270; J2405; Q9967

== ENCOUNTER 2023-02-18 23:08 | Emergency (ER) | payer BC ==
[2023-02-18] MEDS ORDERED: Sodium Chloride 0.9% 10 ML Syringe FLUSH PRN (23:46)
[2023-02-18] MEDS ORDERED: Sodium Chloride 0.9% 2.5 ML Syringe FLUSH PRN (23:46)
[2023-02-19] MEDS: HYDROmorphone 1 MG/ML Syringe IVPUSH SCH ×2 (00:09→00:49)
[2023-02-19 00:27] VITALS: BP 142/88
[2023-02-19 00:32] LABS: POTASSIUM,K 4.2 mmol/L (3.5-5.1)
[2023-02-19] MEDS ORDERED: Pantoprazole 40 MG in Sodium Chloride 0.9% 10 ML IVPUSH ONE (00:56)
[2023-02-19 01:21] VITALS: PULSE 119
== END 2023-02-19 00:10 ==
LOC: MW.ED 23:08
DX: L76.22 Postprocedural hemorrhage of skin and subcutaneous tissue following other procedure (principal); E66.9 Obesity, unspecified; Z68.35 Body mass index [BMI] 35.0-35.9, adult
CPT/HCPCS: 36415; 80048; 85025; 85610; 99284; C9113; J1170; J3490

== ENCOUNTER 2024-05-27 11:04 | Emergency (ER) | payer BC ==
[2024-05-27] MEDS: Ketorolac 30 MG/ML SDV IM STA (15:12)
[2024-05-27] MEDS: oxyCODONE 5 MG Tab PO STA (15:45)
[2024-05-27] MEDS: Diazepam 5 MG Tab PO STA (18:44)
[2024-05-27 19:24] VITALS: BP 142/84; PULSE 97
== END 2024-05-27 18:53 | disposition home or self-care (01) ==
LOC: MW.ED 11:04
DX: M62.830 Muscle spasm of back (principal); E66.9 Obesity, unspecified; F17.210 Nicotine dependence, cigarettes, uncomplicated; Z68.33 Body mass index [BMI] 33.0-33.9, adult; Z75.8 Other problems related to medical facilities and other health care
CPT/HCPCS: 72131; 96372; 99283; A9270; J1885; J3360

== ENCOUNTER 2025-07-01 09:30 | Observation (INO) | payer BC ==
[2025-07-01] MEDS: Diphtheria,Pertussis(Acell),Tetanus Vaccine 0.5 ML Syringe IM ONE (10:06)
[2025-07-01 10:16] LABS: BASOPHILS ABSOLUTE AUTO 0.07 K/uL (0.00-0.20); BASOPHILS PERCENT AUTO 0.8 % (0.0-1.0); EOSINOPHILS ABSOLUTE AUTO 0.67 K/uL (0.00-0.45); EOSINOPHILS PERCENT AUTO 7.6 % (0.0-6.0); IMMATURE GRAN ABSOLUTE AUTO 0.01 K/uL (0.00-0.05); IMMATURE GRAN PERCENT AUTO 0.1 % (0.0-0.4); LYMPHOCYTES ABSOLUTE AUTO 2.41 K/uL (1.00-4.80); LYMPHOCYTES PERCENT AUTO 27.4 % (24.0-44.0); MEAN PLATELET VOLUME 10.7 fL (9.4-12.4); MONOCYTES ABSOLUTE AUTO 0.76 K/uL (0.00-0.80); MONOCYTES PERCENT AUTO 8.6 % (0.0-8.0); NEUTROPHILS ABSOLUTE AUTO 4.88 K/uL (1.80-7.70); NEUTROPHILS PERCENT AUTO 55.5 % (41.0-71.0); NRBC ABSOLUTE 0.00 K/uL (0.00-0.02); NRBC PERCENT 0.0 /100WBC (0.0-0.2); PLATELET COUNT,PLT 214 K/uL (150-400); RED BLOOD CELL COUNT 5.55 M/uL (4.52-5.90); WHITE BLOOD CELL COUNT,WBC 8.80 K/uL (3.9-11.3)
[2025-07-01 10:45] LABS: LACTIC ACID 1.1 mmol/L (0.4-2.0)
[2025-07-01 10:51] LABS: A/G RATIO 1.2 (0.9-1.6); ALANINE AMINOTRANSFERASE,ALT 38.0 IU/L (14-63); ASPARTATE AMNIOTRANSFERASE,AST 24.0 IU/L (15-37); BILIRUBIN TOTAL 1.1 mg/dL (0.2-1.0); BLOOD UREA NITROGEN,BUN 8.0 mg/dL (7.0-18.0); CARBON DIOXIDE,CO2 27.3 mmol/L (21.0-32.0); CHLORIDE,CL 103.0 mmol/L (98-107); CREATININE 1.2 mg/dL (0.8-1.3); EST CRCL DRUG DOSING (CG) 74.97 mL/min; ESTIMATED GFR 77.0 mL/min (>60); GLUCOSE RANDOM 102.0 mg/dL (74-106); POTASSIUM,K 4.2 mmol/L (3.5-5.1); PROTEIN TOTAL,TP 7.2 g/dL (6.4-8.2); SODIUM,NA 140.0 mmol/L (136-148)
[2025-07-01] MEDS: ceFAZolin 2 GM in Water For Injection, Sterile 20 ML IVPUSH ONE (11:53)
[2025-07-01] MEDS: VANCOmycin 2 GM/400 ML 2 GM in Premix Bag 1 BAG IV ONE (12:34)
[2025-07-01] MEDS: Sodium Chloride 0.9% 2.5 ML Syringe FLUSH PRN (12:35)
[2025-07-01] MEDS: Sodium Chloride 0.9% 10 ML Syringe FLUSH PRN (12:35)
[2025-07-01] MEDS ORDERED: Sodium Chloride 0.9% 2.5 ML Syringe FLUSH PRN (12:59)
[2025-07-01] MEDS ORDERED: Sodium Chloride 0.9% 10 ML Syringe FLUSH PRN (12:59)
[2025-07-01] MEDS ORDERED: Ondansetron 4 MG Tab.DIS PO PRN (12:59)
[2025-07-01] MEDS ORDERED: cefTRIAXone 2 GM in Water For Injection, Sterile 20 ML IVPUSH SCH (13:15)
[2025-07-01] MEDS: Acetaminophen/oxyCODONE 325-10 MG Tab PO PRN (14:48)
[2025-07-01 16:34] VITALS: PULSE 76
[2025-07-01] MEDS: Iopamidol 755 MG/ML 500 ML Multipack Bottle IVPUSH STA (17:12)
[2025-07-01] MEDS: cefTRIAXone 2 GM in Water For Injection, Sterile 20 ML IVPUSH SCH (17:50)
[2025-07-01] MEDS ORDERED: Naloxone 0.4 MG/ML SDV IVPUSH PRN (21:05)
[2025-07-02 01:12] VITALS: BP 143/91
== END 2025-07-02 00:30 | disposition home or self-care (01) ==
LOC: MW.ED 09:30 → MW.MS 13:04
PROVIDERS: ADMIT Internal Medicine; ATTEND Internal Medicine
DX: S61.204A Unspecified open wound of right ring finger without damage to nail, initial encounter (principal); L03.011 Cellulitis of right finger; F17.200 Nicotine dependence, unspecified, uncomplicated; X58.XXXA Exposure to other specified factors, initial encounter; Z79.899 Other long term (current) drug therapy
CPT/HCPCS: 36415; 73130; 73201; 80053; 83605; 85025; 85652; 86140; 90471; 90715; 96361; 96365; 96375; 99284; A4216; A9270; J0690; J0696; J1650; J3373; J3375; J7030; J7050; Q9967; 96372; G0378; J1171